=== PATIENT | male | born 1980 | race Caucasian/White ===

== ENCOUNTER 2018-12-21 14:50 | Inpatient (IN) | payer MEDICAID ==
[~2018-12-21] VITALS: Ht 165.1 cm; Wt 68.2 kg
[2018-12-21 13:00] VITALS: BP 112/55
[2018-12-21] MEDS ORDERED: GABA-529 PO (15:28)
[2018-12-21 15:54] LABS: BASOPHILS % (AUTO) 0.4 % (0.0-2.0); EOSINOPHILS % (AUTO) 0.9 % (1.0-6.0); HEMATOCRIT 47.8 % (41-53); HEMOGLOBIN 16.5 g/dL (13.5-17.5); LYMPHOCYTES # (AUTO) 1.8 K/uL (1.0-4.8); LYMPHOCYTES % (AUTO) 27.2 % (22.0-44.0); MEAN CORPUSCULAR HEMOGLOBIN 30.2 pg (26.0-34.0); MEAN CORPUSCULAR HGB CONC 34.5 G/dL (31.0-37.0); MEAN CORPUSCULAR VOLUME 88 fL (80-100); MONOCYTES # (AUTO) 0.4 K/uL (0.1-1.0); MONOCYTES % (AUTO) 6.7 % (2.0-9.0); NEUTROPHILS # (AUTO) 4.3 K/uL (1.8-7.7); NEUTROPHILS % (AUTO) 64.8 % (40.0-70.0); PLATELET COUNT (AUTO) 252 K/uL (150-450); RED BLOOD CELL COUNT(AUTO) 5.45 MIL/uL (4.50-5.90); RED CELL DISTRIBUTION WIDTH 13.9 % (11.5-14.5)
[2018-12-21 16:04] LABS: ANION GAP 9 mmol/L (8-16); CALCIUM, TOTAL 9.4 mg/dL (8.8-10.5); CARBON DIOXIDE 28 mmol/L (22-29); CHLORIDE 102 mmol/L (98-107); CREATININE 0.76 mg/dL (0.60-1.30); GLOMERULAR FILTR. RATE CALC > 60 mL/min (>60); GLUCOSE,RANDOM 101 mg/dL (70-110); POTASSIUM 3.9 mmol/L (3.5-5.1); SODIUM SERUM 139 mmol/L (136-145); UREA NITROGEN, BLOOD 11 mg/dL (7-18)
[2018-12-21 16:11] LABS: ALANINE AMINOTRANSFERASE 17 U/L (12-78); ALKALINE PHOSPHATASE 83 U/L (46-116); ASPARTATE AMINOTRANSFERASE 14 U/L (15-37); BILIRUBIN,TOTAL 0.9 mg/dL (0.1-1.0); TOTAL PROTEIN, SERUM 8.1 g/dL (6.4-8.2)
[2018-12-21 21:20] LABS: AMPHET/METH SCREEN,URINE NEGATIVE (NEGATIVE); BARBITURATE SCREEN, URINE NEGATIVE (NEGATIVE); BENZODIAZEPINES SCREEN,URINE POSITIVE (NEGATIVE); CANNABINOID SCREEN,URINE NEGATIVE (NEGATIVE); COCAINE SCREEN,URINE NEGATIVE (NEGATIVE); METHADONE SCREEN, URINE NEGATIVE (NEGATIVE); OPIATE SCREEN,URINE NEGATIVE (NEGATIVE)
[2018-12-21 21:25] LABS: PHENCYCLIDINE SCREEN,URINE NEGATIVE (NEGATIVE)
[2018-12-21 22:34] LABS: APPEARANCE,URINE CLEAR (CLEAR); BILIRUBIN,URINE NEGATIVE (NEGATIVE); GLUCOSE, URINE (UA) NEGATIVE (NEGATIVE); KETONES,URINE NEGATIVE (NEGATIVE); LEUKOCYTE ESTERASE ,URINE NEGATIVE (NEGATIVE); NITRATE,URINE NEGATIVE (NEGATIVE); OCCULT BLOOD,URINE NEGATIVE (NEGATIVE); PROTEIN,URINE NEGATIVE (NEGATIVE); UROBILINOGEN,URINE 0.2 mg/dL (<=1.0)
[2018-12-21 22:41] LABS: HEMOGLOBIN A1C 5.6 % (4.5-6.2)
[2018-12-21 22:53] LABS: CHOL/HDL RATIO 2.6 (4.2-7.3); FREE T4 (FREE THYROXINE) 1.1 ng/dL (0.76-1.46); THYROID STIMULATING HORMONE 1.31 uIU/mL (0.36-3.74)
[2018-12-22 00:50] VITALS: BP 123/81
[2018-12-22] MEDS ORDERED: MAGNESIUM HYDROXIDE SUSPENSION 30 ML UDCUP PO PRN (07:30)
[2018-12-22] MEDS ORDERED: ONDANSETRON HCL 4 MG TABLET PO PRN (07:30)
[2018-12-22] MEDS ORDERED: ACETAMINOPHEN 325 MG TABLET PO PRN (07:30)
[2018-12-22] MEDS ORDERED: CloNIDine HCL 0.1 MG TABLET PO PRN (07:30)
[2018-12-22] MEDS ORDERED: MAG HYDROX/AL HYDROX/SIMETH ES 30 ML SUSPENSION UDCUP PO PRN (07:30)
[2018-12-22] MEDS ORDERED: GuaiFENesin/D-METHORPHAN [SUGAR-FREE] 200-20MG/10 ML SYRUP UDCUP PO PRN (07:30)
[2018-12-22] MEDS ORDERED: DOCUSATE SODIUM 100 MG CAPSULE PO PRN (07:30)
[2018-12-22] MEDS ORDERED: LOPERAMIDE HCL 2 MG CAPSULE PO PRN (07:30)
[2018-12-22] MEDS ORDERED: ALBUTEROL SULFATE HFA 90 MCG/PUFF 8 GM INHALER IH PRN (07:30)
[2018-12-22] MEDS ORDERED: PETROLATUM,WHITE 71 GM JELLY TP PRN (07:30)
[2018-12-22 08:36] VITALS: BP 109/66
[2018-12-22] MEDS: OLANZapine 5 MG TABLET PO SCH (16:20)
[2018-12-22 20:39] VITALS: BP 111/77
[2018-12-23 07:04] LABS: BASOPHILS % (AUTO) 0.2 % (0.0-2.0); EOSINOPHILS % (AUTO) 1.8 % (1.0-6.0); HEMATOCRIT 49.3 % (41-53); HEMOGLOBIN 16.8 g/dL (13.5-17.5); LYMPHOCYTES # (AUTO) 2.6 K/uL (1.0-4.8); LYMPHOCYTES % (AUTO) 37.8 % (22.0-44.0); MEAN CORPUSCULAR HEMOGLOBIN 30.3 pg (26.0-34.0); MEAN CORPUSCULAR VOLUME 89 fL (80-100); MONOCYTES # (AUTO) 0.4 K/uL (0.1-1.0); NEUTROPHILS # (AUTO) 3.7 K/uL (1.8-7.7); NEUTROPHILS % (AUTO) 54.2 % (40.0-70.0); PLATELET COUNT (AUTO) 278 K/uL (150-450); RED BLOOD CELL COUNT(AUTO) 5.53 MIL/uL (4.50-5.90); RED CELL DISTRIBUTION WIDTH 14.2 % (11.5-14.5)
[2018-12-23 07:25] LABS: ALANINE AMINOTRANSFERASE 19 U/L (12-78); ALBUMIN 3.6 g/dL (3.4-5.0); ALKALINE PHOSPHATASE 75 U/L (46-116); ANION GAP 6 mmol/L (8-16); ASPARTATE AMINOTRANSFERASE 15 U/L (15-37); BILIRUBIN,TOTAL 0.7 mg/dL (0.1-1.0); CALCIUM, TOTAL 9.1 mg/dL (8.8-10.5); CARBON DIOXIDE 30 mmol/L (22-29); CHLORIDE 102 mmol/L (98-107); CHOL/HDL RATIO 2.9 (4.2-7.3); CHOLESTEROL 110 mg/dL (131-200); GLOMERULAR FILTR. RATE CALC > 60 mL/min (>60); GLUCOSE,RANDOM 107 mg/dL (70-110); HDL CHOLESTEROL 38 mg/dL (40-60); LDL CHOL (CALC.) 53 mg/dL (0-130); POTASSIUM 3.7 mmol/L (3.5-5.1); SODIUM SERUM 138 mmol/L (136-145); THYROID STIMULATING HORMONE 2.53 uIU/mL (0.36-3.74); TOTAL PROTEIN, SERUM 7.8 g/dL (6.4-8.2); TRIGLYCERIDES 97 mg/dL (15-150); UREA NITROGEN, BLOOD 17 mg/dL (7-18)
[2018-12-23 07:42] LABS: HEMOGLOBIN A1C 5.5 % (4.5-6.2)
[2018-12-23 09:39] VITALS: BP 131/61
[2018-12-23] MEDS: OLANZapine 5 MG TABLET PO SCH ×2 (10:21→16:14)
[2018-12-23 16:00] VITALS: BP 129/64
[2018-12-23] MEDS: GABAPENTIN 100 MG CAPSULE PO SCH (18:51)
[2018-12-24 03:14] VITALS: BP 121/77
[2018-12-24] MEDS: GABAPENTIN 100 MG CAPSULE PO SCH ×3 (08:19→16:51)
[2018-12-24] MEDS: OLANZapine 5 MG TABLET PO SCH ×2 (08:19→16:51)
[2018-12-24 10:57] VITALS: BP 134/84
[2018-12-24 19:48] VITALS: BP 120/62
[2018-12-25] MEDS: GABAPENTIN 100 MG CAPSULE PO SCH ×3 (07:59→16:26)
[2018-12-25] MEDS: HALOPERIDOL 5 MG TABLET PO PRN ×2 (07:59→12:50)
[2018-12-25] MEDS: LORazepam 2 MG TABLET PO PRN (07:59)
[2018-12-25] MEDS: OLANZapine 5 MG TABLET PO SCH ×2 (07:59→16:27)
[2018-12-25 09:26] VITALS: BP 118/75
[2018-12-25 13:48] LABS: ALANINE AMINOTRANSFERASE 23 U/L (12-78); ALBUMIN 3.6 g/dL (3.4-5.0); ALKALINE PHOSPHATASE 70 U/L (46-116); ANION GAP 6 mmol/L (8-16); ASPARTATE AMINOTRANSFERASE 19 U/L (15-37); BILIRUBIN,TOTAL 0.6 mg/dL (0.1-1.0); CALCIUM, TOTAL 9.2 mg/dL (8.8-10.5); CARBON DIOXIDE 27 mmol/L (22-29); CHLORIDE 101 mmol/L (98-107); CREATININE 0.71 mg/dL (0.60-1.30); GLOMERULAR FILTR. RATE CALC > 60 mL/min (>60); GLUCOSE,RANDOM 109 mg/dL (70-110); SODIUM SERUM 134 mmol/L (136-145); TOTAL PROTEIN, SERUM 7.4 g/dL (6.4-8.2); UREA NITROGEN, BLOOD 17 mg/dL (7-18)
[2018-12-25 17:15] LABS: BASOPHILS % (AUTO) 0.2 % (0.0-2.0); EOSINOPHILS % (AUTO) 1.1 % (1.0-6.0); HEMATOCRIT 46.1 % (41-53); LYMPHOCYTES % (AUTO) 35.5 % (22.0-44.0); MEAN CORPUSCULAR HEMOGLOBIN 30.1 pg (26.0-34.0); MEAN CORPUSCULAR HGB CONC 34.7 G/dL (31.0-37.0); MEAN CORPUSCULAR VOLUME 87 fL (80-100); MONOCYTES # (AUTO) 0.3 K/uL (0.1-1.0); MONOCYTES % (AUTO) 6.1 % (2.0-9.0); NEUTROPHILS # (AUTO) 3.2 K/uL (1.8-7.7); NEUTROPHILS % (AUTO) 57.1 % (40.0-70.0); PLATELET COUNT (AUTO) 281 K/uL (150-450); RED BLOOD CELL COUNT(AUTO) 5.32 MIL/uL (4.50-5.90); RED CELL DISTRIBUTION WIDTH 13.9 % (11.5-14.5)
[2018-12-25 17:41] VITALS: BP 103/60
[2018-12-26 08:58] VITALS: BP 106/75
[2018-12-26] MEDS: GABAPENTIN 100 MG CAPSULE PO SCH ×3 (10:17→16:11)
[2018-12-26] MEDS: OLANZapine 5 MG TABLET PO SCH ×2 (10:17→20:16)
[2018-12-26 19:00] VITALS: BP 116/66
[2018-12-27] MEDS: ZOLPIDEM TARTRATE 10 MG TABLET PO PRN (02:43)
[2018-12-27] MEDS: LORazepam 2 MG TABLET PO PRN (02:44)
[2018-12-27 05:26] VITALS: BP 133/84
[2018-12-27] MEDS: GABAPENTIN 100 MG CAPSULE PO SCH ×3 (08:44→16:21)
[2018-12-27 08:50] VITALS: BP 102/56
[2018-12-27 16:36] VITALS: BP 125/76
[2018-12-27] MEDS: OLANZapine 5 MG TABLET PO SCH (20:09)
[2018-12-28] MEDS: GABAPENTIN 100 MG CAPSULE PO SCH ×3 (08:18→16:17)
[2018-12-28 08:22] VITALS: BP 147/70
[2018-12-28] MEDS: OLANZapine 5 MG TABLET PO SCH ×2 (12:53→20:16)
[2018-12-28 16:00] VITALS: BP 144/60
[2018-12-29 06:49] LABS: BASOPHILS % (AUTO) 0.4 % (0.0-2.0); EOSINOPHILS % (AUTO) 2.3 % (1.0-6.0); HEMATOCRIT 42.8 % (41-53); HEMOGLOBIN 15.3 g/dL (13.5-17.5); LYMPHOCYTES # (AUTO) 1.8 K/uL (1.0-4.8); MEAN CORPUSCULAR HEMOGLOBIN 30.8 pg (26.0-34.0); MEAN CORPUSCULAR HGB CONC 35.6 G/dL (31.0-37.0); MEAN CORPUSCULAR VOLUME 87 fL (80-100); MONOCYTES # (AUTO) 0.3 K/uL (0.1-1.0); MONOCYTES % (AUTO) 7.1 % (2.0-9.0); NEUTROPHILS # (AUTO) 2.3 K/uL (1.8-7.7); NEUTROPHILS % (AUTO) 51.2 % (40.0-70.0); PLATELET COUNT (AUTO) 225 K/uL (150-450); RED BLOOD CELL COUNT(AUTO) 4.95 MIL/uL (4.50-5.90); RED CELL DISTRIBUTION WIDTH 13.7 % (11.5-14.5)
[2018-12-29 07:04] LABS: ALANINE AMINOTRANSFERASE 29 U/L (12-78); ALBUMIN 3.5 g/dL (3.4-5.0); ALKALINE PHOSPHATASE 71 U/L (46-116); ANION GAP 4 mmol/L (8-16); ASPARTATE AMINOTRANSFERASE 22 U/L (15-37); BILIRUBIN,TOTAL 0.4 mg/dL (0.1-1.0); CALCIUM, TOTAL 9.2 mg/dL (8.8-10.5); CARBON DIOXIDE 32 mmol/L (22-29); CHLORIDE 104 mmol/L (98-107); CREATININE 0.83 mg/dL (0.60-1.30); GLOMERULAR FILTR. RATE CALC > 60 mL/min (>60); GLUCOSE,RANDOM 101 mg/dL (70-110); SODIUM SERUM 140 mmol/L (136-145); TOTAL PROTEIN, SERUM 7.1 g/dL (6.4-8.2); UREA NITROGEN, BLOOD 13 mg/dL (7-18)
[2018-12-29] MEDS: GABAPENTIN 100 MG CAPSULE PO SCH ×3 (08:59→16:29)
[2018-12-29] MEDS: OLANZapine 5 MG TABLET PO SCH ×2 (08:59→20:18)
[2018-12-29 10:01] VITALS: BP 122/77
[2018-12-29 19:07] VITALS: BP 111/73
[2018-12-30 08:24] VITALS: BP 129/78
[2018-12-30] MEDS: GABAPENTIN 100 MG CAPSULE PO SCH ×3 (08:51→16:16)
[2018-12-30] MEDS: OLANZapine 5 MG TABLET PO SCH ×2 (08:51→20:27)
[2018-12-30 19:47] VITALS: BP 129/81
[2018-12-31] MEDS: GABAPENTIN 100 MG CAPSULE PO SCH ×3 (08:26→16:29)
[2018-12-31] MEDS: OLANZapine 5 MG TABLET PO SCH ×2 (08:26→20:54)
[2018-12-31 08:34] VITALS: BP 120/63
[2018-12-31 16:48] VITALS: BP 115/73
[2019-01-01] MEDS: GABAPENTIN 100 MG CAPSULE PO SCH ×3 (08:56→16:28)
[2019-01-01] MEDS: OLANZapine 5 MG TABLET PO SCH ×2 (08:56→20:34)
[2019-01-01 09:11] VITALS: BP 129/59
[2019-01-01 16:24] VITALS: BP 122/84
[2019-01-02] MEDS: LORazepam 2 MG TABLET PO PRN (07:40)
[2019-01-02] MEDS: GABAPENTIN 100 MG CAPSULE PO SCH ×3 (07:40→16:04)
[2019-01-02] MEDS: OLANZapine 5 MG TABLET PO SCH (07:40)
[2019-01-02 08:00] VITALS: BP 128/81
[2019-01-02 16:14] VITALS: BP 122/83
[2019-01-02] MEDS: OLANZapine 7.5 MG TABLET PO SCH (20:20)
[2019-01-02] MEDS: IBUPROFEN 400 MG TABLET PO PRN (20:52)
[2019-01-02 20:53] VITALS: BP 123/85
[2019-01-03] MEDS: GABAPENTIN 100 MG CAPSULE PO SCH ×3 (08:54→16:26)
[2019-01-03] MEDS: OLANZapine 7.5 MG TABLET PO SCH ×2 (08:55→20:28)
[2019-01-03 13:17] VITALS: BP 102/71
[2019-01-04 02:36] VITALS: BP 108/63
[2019-01-04 06:09] VITALS: BP 108/63
[2019-01-04] MEDS: OLANZapine 7.5 MG TABLET PO SCH (09:14)
[2019-01-04] MEDS: GABAPENTIN 100 MG CAPSULE PO SCH ×3 (09:14→16:09)
[2019-01-04 13:13] VITALS: BP 111/68
[2019-01-04 18:17] VITALS: BP 120/88
[2019-01-05] MEDS: LORazepam 2 MG TABLET PO PRN (01:07)
[2019-01-05] MEDS: ZOLPIDEM TARTRATE 10 MG TABLET PO PRN (01:07)
[2019-01-05 01:15] VITALS: BP 117/80
[2019-01-05] MEDS: GABAPENTIN 100 MG CAPSULE PO SCH ×3 (08:14→17:17)
[2019-01-05 09:05] VITALS: BP 131/88
[2019-01-05 19:42] VITALS: BP 109/73
[2019-01-06 08:00] VITALS: BP 110/78
[2019-01-06] MEDS: GABAPENTIN 100 MG CAPSULE PO SCH ×3 (08:12→16:45)
[2019-01-06 19:00] VITALS: BP 119/79
[2019-01-07] MEDS: GABAPENTIN 100 MG CAPSULE PO SCH ×3 (08:37→16:51)
[2019-01-07 12:33] VITALS: BP 137/76
[2019-01-07 17:21] VITALS: BP 111/54
[2019-01-08] MEDS: GABAPENTIN 100 MG CAPSULE PO SCH ×3 (07:56→16:31)
[2019-01-08 08:00] VITALS: BP 124/77
[2019-01-08 17:22] VITALS: BP 110/60
[2019-01-08] MEDS: IBUPROFEN 400 MG TABLET PO PRN (20:56)
[2019-01-08 20:58] VITALS: BP 113/67
[2019-01-09 08:00] VITALS: BP 109/77
[2019-01-09] MEDS: GABAPENTIN 100 MG CAPSULE PO SCH ×3 (08:08→16:25)
[2019-01-09] MEDS: NICOTINE 14 MG/24 HOUR PATCH TD PRN (09:09)
[2019-01-09 16:55] VITALS: BP 122/72
[2019-01-09] MEDS: IBUPROFEN 400 MG TABLET PO PRN (20:18)
[2019-01-09 20:22] VITALS: BP 129/58
[2019-01-09] MEDS: ZOLPIDEM TARTRATE 10 MG TABLET PO PRN (21:29)
[2019-01-10 05:39] VITALS: BP 121/77
[2019-01-10 08:00] VITALS: BP 126/77
[2019-01-10] MEDS: GABAPENTIN 100 MG CAPSULE PO SCH ×3 (08:37→17:58)
[2019-01-10 16:52] VITALS: BP 125/91
[2019-01-10] MEDS: ZOLPIDEM TARTRATE 10 MG TABLET PO PRN (20:17)
[2019-01-11] MEDS: HALOPERIDOL 5 MG TABLET PO PRN ×2 (06:01→12:15)
[2019-01-11] MEDS: LORazepam 2 MG TABLET PO PRN ×2 (06:01→12:15)
[2019-01-11 08:00] VITALS: BP 154/96
[2019-01-11] MEDS: GABAPENTIN 100 MG CAPSULE PO SCH ×3 (08:17→16:00)
[2019-01-11] MEDS: NICOTINE 14 MG/24 HOUR PATCH TD PRN (08:18)
[2019-01-11 19:35] VITALS: BP 132/66
[2019-01-12 04:34] VITALS: BP 104/75
[2019-01-12 08:05] VITALS: BP 127/96
[2019-01-12] MEDS: GABAPENTIN 100 MG CAPSULE PO SCH ×3 (08:40→16:16)
[2019-01-12] MEDS: NICOTINE 14 MG/24 HOUR PATCH TD PRN (08:46)
[2019-01-12 18:08] VITALS: BP 121/84
[2019-01-13] MEDS: ZOLPIDEM TARTRATE 10 MG TABLET PO PRN (00:45)
[2019-01-13] MEDS: GABAPENTIN 100 MG CAPSULE PO SCH ×2 (07:46→13:00)
[2019-01-13] MEDS: IBUPROFEN 400 MG TABLET PO PRN (07:48)
[2019-01-13] MEDS: HALOPERIDOL 5 MG TABLET PO PRN (10:17)
[2019-01-13] MEDS: LORazepam 2 MG TABLET PO PRN (10:17)
[2019-01-13 10:52] VITALS: BP 146/95
[2019-01-13] MEDS ORDERED: GABA-529 PO (11:12)
== END 2019-01-13 12:40 | disposition home or self-care (01) | DRG 750 ==
LOC: BV PSY EVL 14:50 → 3EC 21:30
PROVIDERS: ADMIT Psychiatry & Neurology Psychiatry; ATTEND Psychiatry & Neurology Psychiatry
DX: F20.0 Paranoid schizophrenia (principal); E87.1 Hypo-osmolality and hyponatremia; F15.90 Other stimulant use, unspecified, uncomplicated; R41.0 Disorientation, unspecified; B19.20 Unspecified viral hepatitis C without hepatic coma; G40.909 Epilepsy, unspecified, not intractable, without status epilepticus; F17.210 Nicotine dependence, cigarettes, uncomplicated; F10.10 Alcohol abuse, uncomplicated; Y90.9 Presence of alcohol in blood, level not specified; F11.90 Opioid use, unspecified, uncomplicated; F19.10 Other psychoactive substance abuse, uncomplicated; R45.87 Impulsiveness; Z79.899 Other long term (current) drug therapy
CPT/HCPCS: 70450; 71101; 72100; 72125; 83036; 84439; 84443; G0480

== ENCOUNTER 2019-10-22 17:04 | Inpatient (IN) | payer MEDICAID, OTHER ==
[~2019-10-22] VITALS: Ht 170.2 cm; Wt 81.4 kg
[~2019-10-22 17:04] MED LIST: GABA-529 PO
[2019-10-22] MEDS ORDERED: SODIUM CHLORIDE 0.9% 1,000 ML IV ONE ×2 (17:30→20:30)
[2019-10-22 17:37] LABS: BASOPHILS % (AUTO) 0.2 % (0.0-2.0); HEMATOCRIT 43.2 % (41-53); HEMOGLOBIN 15.5 g/dL (13.5-17.5); LYMPHOCYTES # (AUTO) 1.1 K/uL (1.0-4.8); LYMPHOCYTES % (AUTO) 12.3 % (22.0-44.0); MEAN CORPUSCULAR HEMOGLOBIN 31.4 pg (26.0-34.0); MEAN CORPUSCULAR HGB CONC 35.8 G/dL (31.0-37.0); MEAN CORPUSCULAR VOLUME 88 fL (80-100); MONOCYTES # (AUTO) 0.4 K/uL (0.1-1.0); NEUTROPHILS # (AUTO) 7.2 K/uL (1.8-7.7); NEUTROPHILS % (AUTO) 81.5 % (40.0-70.0); PLATELET COUNT (AUTO) 223 K/uL (150-450); RED BLOOD CELL COUNT(AUTO) 4.92 MIL/uL (4.50-5.90); RED CELL DISTRIBUTION WIDTH 13.3 % (11.5-14.5)
[2019-10-22 17:44] LABS: ANION GAP 8 mmol/L (8-16); CALCIUM, TOTAL 8.5 mg/dL (8.8-10.5); CARBON DIOXIDE 28 mmol/L (22-29); CHLORIDE 104 mmol/L (98-107); CREATININE 0.98 mg/dL (0.60-1.30); GLOMERULAR FILTR. RATE CALC > 60 mL/min (>60); GLUCOSE,RANDOM 82 mg/dL (70-110); SODIUM SERUM 140 mmol/L (136-145); UREA NITROGEN, BLOOD 21 mg/dL (7-18)
[2019-10-22 17:59] LABS: B-TYPE NATRIURETIC PEPTIDE 52 pg/mL (0-100)
[2019-10-22 18:10] LABS: ALANINE AMINOTRANSFERASE 56 U/L (12-78); ALBUMIN 3.8 g/dL (3.4-5.0); ALKALINE PHOSPHATASE 98 U/L (46-116); ASPARTATE AMINOTRANSFERASE 54 U/L (15-37); BILIRUBIN,TOTAL 0.6 mg/dL (0.1-1.0); TOTAL PROTEIN, SERUM 7.4 g/dL (6.4-8.2)
[2019-10-22 18:11] LABS: CREATINE KINASE, TOTAL ONLY 1058 U/L (39-308)
[2019-10-22] MEDS ORDERED: LORazepam 2 MG/ML VIAL IM ONE (21:15)
[2019-10-22] MEDS ORDERED: DiphenhydrAMINE HCL 50 MG/ML VIAL IM ONE (21:15)
[2019-10-22] MEDS ORDERED: HALOPERIDOL LACTATE 5 MG/ML VIAL IM ONE (21:15)
[2019-10-22 21:38] LABS: APPEARANCE,URINE CLEAR (CLEAR); BILIRUBIN,URINE NEGATIVE (NEGATIVE); GLUCOSE, URINE (UA) NEGATIVE (NEGATIVE); KETONES,URINE NEGATIVE (NEGATIVE); LEUKOCYTE ESTERASE ,URINE NEGATIVE (NEGATIVE); NITRATE,URINE NEGATIVE (NEGATIVE); OCCULT BLOOD,URINE NEGATIVE (NEGATIVE); PH,URINE 5.5 (5.0-8.0); PROTEIN,URINE NEGATIVE (NEGATIVE)
[2019-10-22 21:44] LABS: AMPHET/METH SCREEN,URINE POSITIVE (NEGATIVE); BARBITURATE SCREEN, URINE NEGATIVE (NEGATIVE); BENZODIAZEPINES SCREEN,URINE NEGATIVE (NEGATIVE); CANNABINOID SCREEN,URINE NEGATIVE (NEGATIVE); COCAINE SCREEN,URINE NEGATIVE (NEGATIVE); METHADONE SCREEN, URINE NEGATIVE (NEGATIVE); OPIATE SCREEN,URINE POSITIVE (NEGATIVE); PHENCYCLIDINE SCREEN,URINE NEGATIVE (NEGATIVE)
[2019-10-22] MEDS ORDERED: LORazepam 2 MG TABLET PO PRN (23:00)
[2019-10-22] MEDS ORDERED: ZOLPIDEM TARTRATE 10 MG TABLET PO PRN (23:00)
[2019-10-22] MEDS ORDERED: ACETAMINOPHEN 325 MG TABLET PO PRN (23:00)
[2019-10-22] MEDS ORDERED: HALOPERIDOL 5 MG TABLET PO PRN (23:00)
[2019-10-23 02:49] VITALS: BP 97/61
[2019-10-23 09:19] VITALS: BP 106/68
[2019-10-23] MEDS ORDERED: ZOLPIDEM TARTRATE 10 MG TABLET PO PRN (13:00)
[2019-10-23] MEDS: FLUoxetine HCL 20 MG CAPSULE PO SCH (13:45)
[2019-10-23] MEDS ORDERED: ACETAMINOPHEN 325 MG TABLET PO PRN (14:45)
[2019-10-23] MEDS ORDERED: ALBUTEROL SULFATE HFA 90 MCG/PUFF 8 GM INHALER IH PRN (14:45)
[2019-10-23] MEDS ORDERED: IBUPROFEN 400 MG TABLET PO PRN (14:45)
[2019-10-23] MEDS ORDERED: PETROLATUM,WHITE 28 GM JELLY TP PRN (14:45)
[2019-10-23] MEDS ORDERED: GuaiFENesin/D-METHORPHAN [SUGAR-FREE] 200-20MG/10 ML SYRUP UDCUP PO PRN (14:45)
[2019-10-23] MEDS ORDERED: MAGNESIUM HYDROXIDE SUSPENSION 30 ML UDCUP PO PRN (14:45)
[2019-10-23] MEDS ORDERED: MAG HYDROX/AL HYDROX/SIMETH ES 30 ML SUSPENSION UDCUP PO PRN (14:45)
[2019-10-23] MEDS ORDERED: NICOTINE 14 MG/24 HOUR PATCH TD PRN (14:45)
[2019-10-23] MEDS ORDERED: DOCUSATE SODIUM 100 MG CAPSULE PO PRN (14:45)
[2019-10-23] MEDS ORDERED: ONDANSETRON HCL 4 MG TABLET PO PRN (14:45)
[2019-10-23] MEDS ORDERED: LOPERAMIDE HCL 2 MG CAPSULE PO PRN (14:45)
[2019-10-23] MEDS ORDERED: CloNIDine HCL 0.1 MG TABLET PO PRN (14:45)
[2019-10-23] MEDS: GABAPENTIN 100 MG CAPSULE PO SCH (16:28)
[2019-10-23 17:08] VITALS: BP 97/50
[2019-10-23 18:03] VITALS: BP 109/59
[2019-10-23] MEDS: OLANZapine 5 MG TABLET PO SCH (20:26)
[2019-10-24] VITALS (10 sets, daily range): BP systolic 94–138; BP diastolic 56–74
[2019-10-24] MEDS: GABAPENTIN 100 MG CAPSULE PO SCH ×3 (11:14→16:10)
[2019-10-24] MEDS: FLUoxetine HCL 20 MG CAPSULE PO SCH (11:14)
[2019-10-24] MEDS ORDERED: CloNIDine HCL 0.1 MG TABLET PO PRN ×2 (13:00→13:15)
[2019-10-24] MEDS ORDERED: HydrOXYzine PAMOATE 50 MG CAPSULE PO PRN ×2 (13:00→13:15)
[2019-10-24] MEDS ORDERED: MAG HYDROX/AL HYDROX/SIMETH ES 30 ML SUSPENSION UDCUP PO PRN ×2 (13:00→13:15)
[2019-10-24] MEDS ORDERED: IBUPROFEN 600 MG TABLET PO PRN (13:15)
[2019-10-24] MEDS: HALOPERIDOL 5 MG TABLET PO PRN (14:21)
[2019-10-24] MEDS: LORazepam 2 MG TABLET PO PRN (14:21)
[2019-10-24] MEDS: CloNIDine HCL 0.1 MG TABLET PO SCH ×3 (16:10→22:00)
[2019-10-24] MEDS ORDERED: CloNIDine HCL 0.1 MG TABLET PO SCH (17:00)
[2019-10-24] MEDS: OLANZapine 5 MG TABLET PO SCH (21:17)
[2019-10-25] VITALS (11 sets, daily range): BP systolic 88–130; BP diastolic 50–74
[2019-10-25] MEDS: CloNIDine HCL 0.1 MG TABLET PO SCH ×5 (06:00→21:11)
[2019-10-25] MEDS: GABAPENTIN 100 MG CAPSULE PO SCH ×3 (09:17→16:42)
[2019-10-25] MEDS: FLUoxetine HCL 20 MG CAPSULE PO SCH (09:18)
[2019-10-25] MEDS: IBUPROFEN 600 MG TABLET PO PRN (10:37)
[2019-10-25] MEDS: LORazepam 2 MG TABLET PO PRN (10:38)
[2019-10-25] MEDS: HALOPERIDOL 5 MG TABLET PO PRN (10:38)
[2019-10-25] MEDS: OLANZapine 5 MG TABLET PO SCH (20:59)
[2019-10-26] VITALS (8 sets, daily range): BP systolic 95–112; BP diastolic 55–67
[2019-10-26] MEDS: CloNIDine HCL 0.1 MG TABLET PO SCH ×4 (05:57→21:24)
[2019-10-26] MEDS: IBUPROFEN 600 MG TABLET PO PRN (09:48)
[2019-10-26] MEDS: FLUoxetine HCL 20 MG CAPSULE PO SCH (09:49)
[2019-10-26] MEDS: GABAPENTIN 100 MG CAPSULE PO SCH ×3 (09:50→16:15)
[2019-10-26] MEDS: OLANZapine 5 MG TABLET PO SCH (20:55)
[2019-10-27 04:50] VITALS: BP 101/63
[2019-10-27 05:55] VITALS: BP 103/63
[2019-10-27] MEDS: CloNIDine HCL 0.1 MG TABLET PO SCH ×2 (05:55→11:37)
[2019-10-27] MEDS: GABAPENTIN 100 MG CAPSULE PO SCH ×2 (09:13→13:20)
[2019-10-27] MEDS: FLUoxetine HCL 20 MG CAPSULE PO SCH (09:13)
[2019-10-27 09:19] VITALS: BP 114/52
[2019-10-27 09:21] VITALS: BP 114/52
[2019-10-27] MEDS ORDERED: OLAN5TAB27 PO (10:27)
[2019-10-27] MEDS ORDERED: FLUO-191 PO (10:27)
[2019-10-27] MEDS ORDERED: GABA-529 PO (11:58)
== END 2019-10-27 15:25 | disposition home or self-care (01) | DRG 885 ==
LOC: EMS 17:05 → 3EI 23:58
DX: F20.0 Paranoid schizophrenia (principal); M62.82 Rhabdomyolysis; F10.10 Alcohol abuse, uncomplicated; F11.10 Opioid abuse, uncomplicated; F15.10 Other stimulant abuse, uncomplicated; F41.9 Anxiety disorder, unspecified; G40.909 Epilepsy, unspecified, not intractable, without status epilepticus; Z87.891 Personal history of nicotine dependence
CPT/HCPCS: 93005; 99291; G0480; J1200; J1630; J2060; J7030

== ENCOUNTER 2020-09-20 20:05 | Emergency (ER) | payer MEDICAID, OTHER ==
[~2020-09-20] VITALS: Ht 167.6 cm; Wt 57.0 kg
[~2020-09-20 20:05] MED LIST changes: +FLUO-191 PO; +GABA-1216 PO; -GABA-529 PO; +OLAN5TAB27 PO
[2020-09-20] MEDS ORDERED: HALOPERIDOL LACTATE 5 MG/ML VIAL IM ONE (20:45)
[2020-09-20] MEDS ORDERED: LORazepam 2 MG/ML VIAL IM ONE (20:45)
[2020-09-20] MEDS ORDERED: DiphenhydrAMINE HCL 50 MG/ML VIAL IM ONE (20:45)
[2020-09-20 21:37] LABS: BASOPHILS % (AUTO) 0.2 % (0.0-2.0); EOSINOPHILS % (AUTO) 0 % (1.0-6.0); HEMATOCRIT 40.4 % (41-53); HEMOGLOBIN 13.7 g/dL (13.5-17.5); LYMPHOCYTES # (AUTO) 0.5 K/uL (1.0-4.8); LYMPHOCYTES % (AUTO) 5.3 % (22.0-44.0); MEAN CORPUSCULAR HEMOGLOBIN 30.2 pg (26.0-34.0); MEAN CORPUSCULAR HGB CONC 33.9 G/dL (31.0-37.0); MEAN CORPUSCULAR VOLUME 89 fL (80-100); MONOCYTES # (AUTO) 0.4 K/uL (0.1-1.0); MONOCYTES % (AUTO) 4.8 % (2.0-9.0); NEUTROPHILS # (AUTO) 8.1 K/uL (1.8-7.7); PLATELET COUNT (AUTO) 243 K/uL (150-450); RED BLOOD CELL COUNT(AUTO) 4.54 MIL/uL (4.50-5.90); RED CELL DISTRIBUTION WIDTH 13.2 % (11.5-14.5)
[2020-09-20 21:39] LABS: NEUTROPHILS % (AUTO) 89.7 % (40.0-70.0)
[2020-09-20 21:53] LABS: ANION GAP 14 mmol/L (8-16); CALCIUM, TOTAL 9.1 mg/dL (8.8-10.5); CARBON DIOXIDE 24 mmol/L (22-29); CHLORIDE 115 mmol/L (98-107); CREATININE 1.17 mg/dL (0.60-1.30); GLOMERULAR FILTR. RATE CALC > 60 mL/min (>60); GLUCOSE,RANDOM 66 mg/dL (70-110); POTASSIUM 3.2 mmol/L (3.5-5.1); SODIUM SERUM 153 mmol/L (136-145); UREA NITROGEN, BLOOD 26 mg/dL (7-18)
[2020-09-20 21:59] LABS: ALANINE AMINOTRANSFERASE 39 U/L (12-78); ALBUMIN 3.4 g/dL (3.4-5.0); ALKALINE PHOSPHATASE 93 U/L (46-116); ASPARTATE AMINOTRANSFERASE 52 U/L (15-37); BILIRUBIN,TOTAL 0.8 mg/dL (0.1-1.0); TOTAL PROTEIN, SERUM 6.9 g/dL (6.4-8.2)
[2020-09-21 00:46] LABS: AMPHET/METH SCREEN,URINE POSITIVE (NEGATIVE); BARBITURATE SCREEN, URINE NEGATIVE (NEGATIVE); BENZODIAZEPINES SCREEN,URINE NEGATIVE (NEGATIVE); CANNABINOID SCREEN,URINE NEGATIVE (NEGATIVE); COCAINE SCREEN,URINE NEGATIVE (NEGATIVE); METHADONE SCREEN, URINE NEGATIVE (NEGATIVE); OPIATE SCREEN,URINE POSITIVE (NEGATIVE)
[2020-09-21 00:49] LABS: PHENCYCLIDINE SCREEN,URINE NEGATIVE (NEGATIVE)
[2020-09-21 13:24] VITALS: BP 109/68
== END 2020-09-21 14:05 | disposition home or self-care (01) ==
LOC: EMS 20:07
DX: F41.9 Anxiety disorder, unspecified (principal); F15.90 Other stimulant use, unspecified, uncomplicated; F11.90 Opioid use, unspecified, uncomplicated; F17.210 Nicotine dependence, cigarettes, uncomplicated; Z79.899 Other long term (current) drug therapy
CPT/HCPCS: 36415; 80053; 80307; 85025; 96372; 99291; G0480; J1200; J1630; J2060; 51701; 51702

== ENCOUNTER 2025-07-12 21:09 | Emergency (ER) | payer MEDICAID, OTHER ==
[~2025-07-12] VITALS: Ht 165.1 cm; Wt 63.6 kg
[~2025-07-12 21:09] MED LIST changes: +FLUO-177 PO; -FLUO-191 PO; -OLAN5TAB27 PO; +OLAN5TAB77 PO
[2025-07-12 22:09] LABS: PLATELET COUNT (AUTO) 252 K/uL (150-450); RED BLOOD CELL COUNT(AUTO) 4.90 MIL/uL (4.50-5.90); RED CELL DISTRIBUTION WIDTH 14.4 % (11.5-14.5); WHITE BLOOD COUNT (AUTO) 5.4 K/uL (4.5-11.0)
[2025-07-12 22:14] LABS: CALCIUM, TOTAL 8.1 mg/dL (8.8-10.5); CREATININE 1.07 mg/dL (0.60-1.30); GLOMERULAR FILTR. RATE CALC > 60 mL/min (>60); GLUCOSE,RANDOM 95 mg/dL (70-110); SODIUM SERUM 143 mmol/L (136-145); UREA NITROGEN, BLOOD 18 mg/dL (7-18)
[2025-07-12] MEDS: LIDOCAINE 1% 10 ML VIAL SQ ONE (22:26)
[2025-07-13 00:43] VITALS: BP 119/67; PULSE 89; RESP 18; TEMP 97.9; O2SAT 98
== END 2025-07-13 01:02 | disposition home or self-care (01) ==
LOC: EMS 21:09
DX: S01.112A Laceration without foreign body of left eyelid and periocular area, initial encounter (principal); S09.90XA Unspecified injury of head, initial encounter; F10.129 Alcohol abuse with intoxication, unspecified; F17.210 Nicotine dependence, cigarettes, uncomplicated; F15.90 Other stimulant use, unspecified, uncomplicated; G10 Huntington's disease; Z79.899 Other long term (current) drug therapy; W19.XXXA Unspecified fall, initial encounter; Y93.89 Activity, other specified; Y92.89 Other specified places as the place of occurrence of the external cause; Y99.8 Other external cause status; Y90.9 Presence of alcohol in blood, level not specified
CPT/HCPCS: 99284; 70450; 80048; 85025; 36415; 70486; 72125; 12011; G0480; J3490

== ENCOUNTER 2025-08-06 14:17 | Inpatient (IN) | payer MEDICAID, OTHER ==
[~2025-08-06] VITALS: Ht 162.6 cm; Wt 59.1 kg
[2025-08-06 15:36] LABS: PLATELET COUNT (AUTO) 460 K/uL (150-450); RED BLOOD CELL COUNT(AUTO) 4.25 MIL/uL (4.50-5.90); RED CELL DISTRIBUTION WIDTH 14.3 % (11.5-14.5); WHITE BLOOD COUNT (AUTO) 5.6 K/uL (4.5-11.0)
[2025-08-06 15:45] LABS: CALCIUM, TOTAL 8.2 mg/dL (8.8-10.5); CREATININE 0.72 mg/dL (0.60-1.30); GLOMERULAR FILTR. RATE CALC > 60 mL/min (>60); GLUCOSE,RANDOM 122 mg/dL (70-110); SODIUM SERUM 136 mmol/L (136-145); UREA NITROGEN, BLOOD 16 mg/dL (7-18)
[2025-08-06 19:41] VITALS: BP 113/71; PULSE 63; RESP 18; TEMP 98.6; O2SAT 100
[2025-08-07 04:22] VITALS: BP 116/75; PULSE 60; RESP 18; TEMP 98.2; O2SAT 99
[2025-08-07 09:12] VITALS: BP 114/76; PULSE 54; RESP 18; TEMP 98.1; O2SAT 99
[2025-08-07] MEDS ORDERED: LOPERAMIDE HCL 2 MG CAPSULE PO PRN (10:15)
[2025-08-07] MEDS ORDERED: LORazepam 2 MG/ML VIAL IVP PRN (10:15)
[2025-08-07] MEDS ORDERED: DICYCLOMINE HCL 10 MG CAPSULE PO PRN (10:15)
[2025-08-07] MEDS ORDERED: ACETAMINOPHEN 325 MG TABLET PO PRN (10:15)
[2025-08-07] MEDS ORDERED: METOCLOPRAMIDE HCL 5 MG/ML 2 ML VIAL IVP PRN (10:15)
[2025-08-07] MEDS: GABAPENTIN 100 MG CAPSULE PO SCH (17:16)
[2025-08-07 20:00] VITALS: BP 115/76; PULSE 53; RESP 18; TEMP 98.2; O2SAT 98
[2025-08-07] MEDS: TEMAZEPAM 15 MG CAPSULE PO SCH (21:20)
[2025-08-08 04:00] VITALS: BP 116/73; PULSE 54; RESP 18; TEMP 98.4; O2SAT 98
[2025-08-08 08:38] VITALS: BP 119/70; PULSE 47; RESP 18; TEMP 98.2; O2SAT 100
[2025-08-08 15:17] VITALS: BP 105/62; PULSE 62; RESP 18; TEMP 99; O2SAT 98
[2025-08-08] MEDS ORDERED: KETOROLAC TROMETHAMINE 15 MG/ML VIAL IVP ONE (17:00)
[2025-08-08] MEDS: DICYCLOMINE HCL 10 MG CAPSULE PO ONE (18:08)
[2025-08-08 19:23] VITALS: BP 96/51; PULSE 60; RESP 17; TEMP 99.3; O2SAT 96
[2025-08-09 04:06] VITALS: BP 108/70; PULSE 60; RESP 17; TEMP 97.7; O2SAT 97
[2025-08-09 07:51] VITALS: BP 107/74; PULSE 62; RESP 18; TEMP 98; O2SAT 98
[2025-08-09] MEDS: BACITRACIN ZINC/POLYMYXIN B 14.2 GM OINTMENT TP SCH (08:23)
[2025-08-09 19:57] VITALS: BP 112/66; PULSE 62; RESP 18; TEMP 98.6; O2SAT 98
[2025-08-09] MEDS: ETHYL ALCOHOL 62% ANTISEPTIC NASAL SANITIZER 0.6 ML AMPUL NASAL SCH (21:12)
[2025-08-10 04:27] VITALS: BP 109/69; PULSE 64; RESP 18; TEMP 97.7; O2SAT 98
[2025-08-10 08:10] VITALS: BP 108/73; PULSE 60; RESP 18; TEMP 98.2; O2SAT 99
[2025-08-10] MEDS ORDERED: BACI14.26 TP (10:32)
[2025-08-10] MEDS ORDERED: LINE600T14 PO (10:32)
[2025-08-10] MEDS: VANCOMYCIN 1GM/WATER(PEG/NADA) 200 ML IV ONE (12:35)
[2025-08-10 19:26] LABS: GLUCOMETER DEV NAME(LOC) 6S.2; GLUCOSE,POINT OF CARE 289 MG/DL (70-110)
[2025-08-10 19:43] VITALS: BP 103/59; PULSE 59; RESP 18; TEMP 98.9; O2SAT 98
[2025-08-10] MEDS ORDERED: LINEZOLID 600 MG TABLET PO SCH (21:00)
== END 2025-08-10 21:21 | DRG 948 ==
LOC: EMS 14:43 → EDH 17:11 → 6N 21:41
PROVIDERS: ADMIT Internal Medicine; ATTEND Internal Medicine
DX: R53.1 Weakness (principal); F11.23 Opioid dependence with withdrawal; G10 Huntington's disease; F02.80 Dementia in other diseases classified elsewhere, unspecified severity, without behavioral disturbance, psychotic disturbance, mood disturbance, and anxiety; Z87.891 Personal history of nicotine dependence
CPT/HCPCS: 80048; 82962; 85025; 87081; 93005; 99285